=== PATIENT | female | born 1990 | race Two or more races ===

== ENCOUNTER 2021-09-30 03:12 | Emergency (ER) | payer OTHER ==
[~2021-09-30] VITALS: Ht 157.5 cm; Wt 76.2 kg
[2021-09-30] MEDS ORDERED: BACTRIM DS TAB1 EACH PO (04:39)
[2021-09-30] MEDS ORDERED: NAPROXEN375 MG PO (04:41)
== END 2021-09-30 04:46 | disposition home or self-care (01) ==
LOC: ER 03:12 → EDBD 03:39 → ER 03:39
DX: S51.811A Laceration without foreign body of right forearm, initial encounter (principal); Y08.89XA Assault by other specified means, initial encounter; Y93.89 Activity, other specified; Y92.89 Other specified places as the place of occurrence of the external cause